=== PATIENT | female | born 1995 | race Caucasian/White ===

== ENCOUNTER 2017-01-29 11:21 | Emergency (ER) | payer OTHER ==
[2017-01-29 12:44] VITALS: BP 115/70
--- NOTE | 2017-01-29 13:40 | UC ---
Throat Pain/Nasal Blayne HPI - HPI Summary HPI Summary: c/o sore throat for 4 days hurts with swallowing took tylenol without relief. denies any ear pain, fever/chills at this time - History of Current Complaint Chief Complaint: UCRespiratory Stated Complaint: THROAT COMPLAINT Time Seen by Provider: 01/29/17 13:28 Hx Obtained From: Patient Hx Last Menstrual Period: 01/12/17 ?: No Onset/Duration: Gradual Onset, Lasting Days Severity: Severe Pain Scale Used: 0-10 Numeric - 4/10 Associated Signs & Symptoms: Positive: Dysphagia - Epiglottits Risk Factors Epiglottis Risk Factors: Negative - Allergies/Home Medications Allergies/Adverse Reactions: Allergies Allergy/AdvReac Type Severity Reaction Status Date / Time No Known Allergies Allergy Verified 01/29/17 12:44 PMH/Surg Hx/FS Hx/Imm Hx - Surgical History Surgical History: None - Social History Alcohol Use: Occasionally Substance Use Type: None Smoking Status (MU): Never Smoked Tobacco - Immunization History Most Recent Influenza Vaccination: 09-28-14 Review of Systems Skin: Negative Eyes: Negative ENT: Negative, Sore Throat Respiratory: Negative Cardiovascular: Negative Gastrointestinal: Negative Genitourinary: Negative Motor: Negative Neurovascular: Negative Musculoskeletal: Negative Neurological: Negative Psychological: Negative Is Patient Immunocompromised?: No All Other Systems Reviewed And Are Negative: Yes Physical Exam Triage Information Reviewed: Yes Appearance: Well-Appearing, No Pain Distress, Well-Nourished Vital Signs: Initial Vital Signs Temp 98 F 01/29/17 12:37 Pulse 68 01/29/17 12:37 Resp 14 01/29/17 12:37 BP 115/70 01/29/17 12:37 Pulse Ox 100 01/29/17 12:37 Vital Signs Reviewed: Yes Eyes: Positive: Conjunctiva Clear ENT: Positive: Pharyngeal erythema, TM bulging, Hoarse voice Neck: Positive: Supple Respiratory Exam: Normal Respiratory: Positive: Chest non-tender, Lungs clear, Normal breath sounds, No respiratory distress, No accessory muscle use Cardiovascular Exam: Normal Cardiovascular: Positive: RRR, No Murmur Abdominal Exam: Normal Musculoskeletal Exam: Normal Neurological Exam: Normal Neurological: Positive: Alert Psychological: Positive: Normal Response To Family, Age Appropriate Behavior Skin Exam: Normal Throat Pain/Nasal Course/Dx - Course Course Of Treatment: increase fluids daily while on antibiotic - to prevent dehydration. take antibiotic for full 10 days and take with food to prevent GI upset. strep test negative. f/u PCP in 1 week if symptoms not resolving. take ibuprofen or tylenol po every 4-6 hours for pain/fever - Differential Dx/Diagnosis Provider Diagnoses: pharyngitis Discharge - Discharge Plan Condition: Stable Disposition: HOME Prescriptions: Amoxicillin PO (*) [Amoxicillin 875 MG (*)] 875 mg PO BID 10 Days #20 tab Patient Education Materials: Pharyngitis (ED) Referrals: [facility] [Outside] - 1 Week
== END 2017-01-29 13:54 | disposition home or self-care (01) ==
LOC: UCCORT 11:21
DX: J02.9 Acute pharyngitis, unspecified (principal)
CPT/HCPCS: 87651; 99212; G0463

== ENCOUNTER 2017-02-02 16:04 | Emergency (ER) | payer OTHER ==
[2017-02-02 16:33] VITALS: BP 122/68
--- NOTE | 2017-02-02 16:57 | UC ---
Throat Pain/Nasal Blayne HPI - HPI Summary HPI Summary: Pt presents with college friend complaining of ST. She tells me that she was seen 5 days ago for a ST and fever, her POC strep was negative, and she was treated with amoxicillin. She is here today complaining of no relief despite antibiotic therapy. She says she still has a ST and fever, and has developed hoarseness and b/l ear pain. She denies cough, SOB, chest congestion, chest pain , abdominal pain, N/V/D/C - History of Current Complaint Chief Complaint: UCGeneralIllness Stated Complaint: SORE THROAT/FEVER/CONGESTION Time Seen by Provider: 02/02/17 16:48 Hx Obtained From: Patient Hx Last Menstrual Period: 01/12/17 Onset/Duration: Gradual Onset Severity: Moderate Pain Intensity: 7 Pain Scale Used: 0-10 Numeric - Allergies/Home Medications Allergies/Adverse Reactions: Allergies Allergy/AdvReac Type Severity Reaction Status Date / Time No Known Allergies Allergy Verified 02/02/17 16:27 PMH/Surg Hx/FS Hx/Imm Hx Previously Healthy: Yes - Surgical History Surgical History: None - Social History Occupation: Student Lives: Dormitory/Roommates Alcohol Use: Occasionally Substance Use Type: None Smoking Status (MU): Never Smoked Tobacco - Immunization History Most Recent Influenza Vaccination: no Review of Systems Constitutional: Fever Skin: Negative Eyes: Negative ENT: Sore Throat, Ear Ache Respiratory: Negative Cardiovascular: Negative Gastrointestinal: Negative Genitourinary: Negative Neurological: Negative Psychological: Negative All Other Systems Reviewed And Are Negative: Yes Physical Exam Triage Information Reviewed: Yes Appearance: Well-Appearing, Well-Nourished Vital Signs: Initial Vital Signs Temp 98.2 F 02/02/17 16:28 Pulse 93 02/02/17 16:28 Resp 16 02/02/17 16:28 BP 122/68 02/02/17 16:28 Pulse Ox 100 02/02/17 16:28 Vital Signs Reviewed: Yes Eyes: Positive: Conjunctiva Clear, Other: - PERRLA. Negative: Conjunctiva Inflamed, Discharge ENT: Positive: Hearing grossly normal, Pharyngeal erythema, TMs normal, Hoarse voice, Uvula midline. Negative: Nasal congestion, Nasal drainage, TM bulging, TM dull, TM red, Tonsillar swelling, Tonsillar exudate, Muffled voice, Sinus tenderness Neck: Positive: Supple, Nontender, No Lymphadenopathy Respiratory: Positive: Chest non-tender, Lungs clear, Normal breath sounds, No respiratory distress, No accessory muscle use Cardiovascular: Positive: RRR, No Murmur, Pulses Normal Abdomen Description: Positive: Nontender, No Organomegaly, Soft. Negative: CVA Tenderness (R), CVA Tenderness (L), Distended, Guarding Bowel Sounds: Positive: Present Neurological: Positive: Alert Psychological: Positive: Age Appropriate Behavior Skin: Negative: rashes Throat Pain/Nasal Course/Dx - Course Course Of Treatment: Discussed with patient that her symptoms are likely viral in nature - further supported by the fact she is not having relief from antibiotic therapy. Will try magic mouthwash for throat pain and continue rest, ibuprofen, and tylenol for fever and discomfort. - Differential Dx/Diagnosis Differential Diagnosis/HQI/PQRI: Influenza, Mononucleosis, Otitis Media, Peritonsillar Abscess, Pharyngitis, Tonsillitis, URI Provider Diagnoses: Viral Pharyngitis Discharge - Discharge Plan Condition: Stable Disposition: HOME Prescriptions: Magic M W2 Gino/Maal/Nyst/Lido* 5 ml SWISH SWAL QID PRN #100 ml PRN Reason: Sore Throat Patient Education Materials: Pharyngitis (ED) Forms: *School Release Referrals: Non Staff,Doctor [Primary Care Provider] - Additional Instructions: If you develop a fever, SOB, chest pain, new or worsening symptoms - please call your PCP or go to the ED.
== END 2017-02-02 17:10 | disposition home or self-care (01) ==
LOC: UCCORT 16:04
DX: J02.9 Acute pharyngitis, unspecified (principal); R50.9 Fever, unspecified; H92.09 Otalgia, unspecified ear
CPT/HCPCS: 99212; G0463

== ENCOUNTER 2017-02-05 15:01 | Emergency (ER) | payer OTHER ==
[2017-02-05 15:37] VITALS: BP 111/59
--- NOTE | 2017-02-05 16:00 | UC ---
Skin Complaint HPI - HPI Summary HPI Summary: Began treatment with amoxicillin 6 days ago for a sore throat, negative strep. Today developed raised erytehmatous rash from face to trunk, arms, upper thighs. Sore throat persists - History of Current Complaint Chief Complaint: UCRash Time Seen by Provider: 02/05/17 15:48 Stated Complaint: RASH Hx Obtained From: Patient, Family/Customer Care Agent - here with a friend Hx Last Menstrual Period: 01/12/17 ?: No Onset/Duration: Sudden Onset, Lasting Hours - onset over the past 8 hours. Timing: Constant Onset Severity: Moderate Current Severity: Moderate Location: Generalized Character: Pruritus, Raised Aggravating Factor(s): Touch Alleviating Factor(s): Nothing Related History: Recent change in medication - began amoxicillin 6 days ago. - Allergy/Home Medications Allergies/Adverse Reactions: Allergies Allergy/AdvReac Type Severity Reaction Status Date / Time No Known Allergies Allergy Verified 02/05/17 15:27 Home Medications: Home Medications Ibuprofen [Ibuprofen 200] 600 mg PO PRN 02/05/17 [History] Review of Systems Constitutional: Fatigue Skin: Negative Eyes: Negative ENT: Sore Throat - persisting despite amoxicillin Respiratory: Negative Cardiovascular: Negative Gastrointestinal: Negative Genitourinary: Negative Motor: Negative Neurovascular: Negative Musculoskeletal: Negative Neurological: Negative Psychological: Negative Is Patient Immunocompromised?: No All Other Systems Reviewed And Are Negative: Yes PMH/Surg Hx/FS Hx/Imm Hx Previously Healthy: Yes - Surgical History Surgical History: None - Family History Known Family History: Positive: Diabetes - grandfather, Other - mother has penicillin allergy - Social History Occupation: Student Alcohol Use: Occasionally Substance Use Type: None Smoking Status (MU): Never Smoked Tobacco - Immunization History Most Recent Influenza Vaccination: no Physical Exam Triage Information Reviewed: Yes Appearance: Ill-Appearing - looks mildly unwell. Vital Signs: Initial Vital Signs Temp 99 F 02/05/17 15:17 Pulse 95 02/05/17 15:17 Resp 16 02/05/17 15:17 BP 111/59 02/05/17 15:17 Pulse Ox 99 02/05/17 15:17 Eyes: Positive: Conjunctiva Clear ENT: Positive: Pharyngeal erythema, Tonsillar swelling Neck: Positive: Supple, Nontender, Enlarged Nodes @ - tonsillar nodes, has small mobile nodes posterior left cervical Respiratory: Positive: Lungs clear, Normal breath sounds Cardiovascular: Positive: RRR, No Murmur Abdomen Description: Positive: Nontender, No Organomegaly, Soft. Negative: CVA Tenderness (R), Splenomegaly Musculoskeletal Exam: Normal Neurological Exam: Normal Neurological: Positive: Alert Psychological Exam: Normal Skin: Positive: rashes - raised erythematous rash, confluent across face, neck, but spottier on the trunk, arms and upper thighs. Course/Dx - Course Course Of Treatment: prednisone for rash, possible allergic reaction. Discussed possibility of mono x amoxicillin rash v allergic reaction to amoxicillin. - Differential Diagnoses - Skin Complaint Differential Diagnoses: Allergic Reaction, Other - mono - Diagnoses Provider Diagnoses: allergic reaction to amoxicillin versus mono with reaction with amoxicillin. Labs pending. Discharge - Discharge Plan Condition: Stable Disposition: HOME Prescriptions: Prednisone 2 tab PO DAILY #10 tab Patient Education Materials: Acute Rash (ED), Adverse Drug Reaction (ED) Referrals: Non Staff,Doctor [Primary Care Provider] - Additional Instructions: Monospot is pending, and the rash is consistent with the reaction that can be seen when a person with mono takes amoxicillin. If that is negative, this is an allergic reaction to amoxicillin. The treatment approach initially is the same--steroids for comfort, benadryl as needed for itching, keep skin lubricated with either Aveeno or Sarna lotion. You have had an injection of solumedrol with a follow up prescription for oral steroids. This will help both the rash and the sore throat. Steroids could cause some irritability and insomnia, or could make you feel blue, or energetic. You can call for mono results late tomorrow morning.
[2017-02-05] MEDS ORDERED: methylPREDNISolone 125 MG* 2 ML VIAL IM ONE (16:21)
[2017-02-06 13:53] LABS: EBV Response YES
[2017-02-06 13:57] LABS: Hematocrit 42 % (35-47); Hemoglobin 14.3 g/dl (12.0-16.0); Mean Corpuscular HGB Conc 34 g/dl (31-36); Mean Corpuscular Hemoglobin 29 pg (27-31); Mean Corpuscular Volume 84 fL (80-97); Mean Platelet Volume 9 um3 (7.4-10.4); Red Blood Count 4.99 10^6/ul (4.0-5.4); Red Cell Distribution Width 13 % (10.5-15); White Blood Count 5.6 10^3/ul (3.5-10.8)
[2017-02-06 14:09] LABS: Manual Entry Verification CAS0014; Mono Internal Control QC Line Present
--- NOTE | 2017-02-06 18:24 | UC ---
Progress - Progress Note Progress Note: call patient, (-) mono/no acute changes on cbc
[2017-02-08 13:08] LABS: EBV Capsid Ag IgG Ab Positive (Negative); EBV Capsid Ag IgM Ab Negative (Negative)
== END 2017-02-05 16:53 | disposition home or self-care (01) ==
LOC: UCCORT 15:01
DX: R21 Rash and other nonspecific skin eruption (principal); J02.9 Acute pharyngitis, unspecified; R53.83 Other fatigue
CPT/HCPCS: 36415; 85025; 86308; 86664; 86665; 96372; 99212; G0463; J2930

== ENCOUNTER 2017-12-23 16:35 | Emergency (ER) | payer OTHER ==
[2017-12-23 17:07] VITALS: BP 120/66
--- NOTE | 2017-12-23 17:54 | UC ---
UC General HPI - HPI Summary HPI Summary: PT C/O 2 WEEK HX COUG. WORSE OVER PAST 2 DAYS WITH FEVER AND CHILLS. ADMITS TO SOB AND WHEEZING. NO CP. NO HX ASTHMA. - History of Current Complaint Chief Complaint: UCRespiratory Stated Complaint: COUGH,CONGESTION,FEVER Time Seen by Provider: 12/23/17 17:47 Hx Obtained From: Patient Hx Last Menstrual Period: 12/17/17 Onset/Duration: Gradual Onset Timing: Constant Pain Intensity: 0 Associated Signs & Symptoms: Positive: Cough, Fever, SOB, Wheezing. Negative: Chest Pain - Allergy/Home Medications Allergies/Adverse Reactions: Allergies Allergy/AdvReac Type Severity Reaction Status Date / Time amoxicillin Allergy Mild Rash Verified 12/23/17 17:07 PMH/Surg Hx/FS Hx/Imm Hx Previously Healthy: Yes - Surgical History Surgical History: None - Family History Known Family History: Positive: Diabetes - grandfather, Other - mother has penicillin allergy - Social History Occupation: Student Lives: Dormitory/Roommates Alcohol Use: Occasionally Substance Use Type: None Smoking Status (MU): Never Smoked Tobacco - Immunization History Most Recent Influenza Vaccination: no Vaccination Up to Date: Yes Review of Systems Constitutional: Fever, Chills Skin: Negative Eyes: Negative ENT: Negative Respiratory: Shortness Of Breath, Cough Cardiovascular: Negative Gastrointestinal: Negative Genitourinary: Negative Motor: Negative Neurovascular: Negative Musculoskeletal: Negative Neurological: Negative Psychological: Negative Is Patient Immunocompromised?: No All Other Systems Reviewed And Are Negative: Yes Physical Exam Triage Information Reviewed: Yes Appearance: Well-Appearing Vital Signs: Initial Vital Signs Temp 98.8 F 12/23/17 17:02 Pulse 86 12/23/17 17:02 Resp 19 12/23/17 17:02 BP 120/66 12/23/17 17:02 Pulse Ox 98 12/23/17 17:02 Vital Signs Reviewed: Yes Eyes: Positive: Conjunctiva Clear ENT: Positive: Pharynx normal, TMs normal. Negative: Nasal congestion, Nasal drainage Neck: Positive: Supple, Nontender, No Lymphadenopathy Respiratory: Positive: No respiratory distress, Decreased breath sounds, Other: - FOCAL FAINT INSP CRACKLES WITH OCCASIONAL WHEEZES RLL. Cardiovascular: Positive: RRR, No Murmur Abdomen Description: Positive: Nontender, No Organomegaly, Soft Bowel Sounds: Positive: Present Musculoskeletal: Positive: ROM Intact Neurological: Positive: Alert Psychological: Positive: Age Appropriate Behavior Skin Exam: Normal Course/Dx - Course Course Of Treatment: GIVEN HX AND PE, WILL TX FOR BRONCHOSPASM AND POSSIBLE RLL PNEUMONIA. NEED FOR CLOSE F/U ADVISED. - Differential Dx - Multi-Symptom Provider Diagnoses: ACUTE COUG. BRONCHOSPASM. POSSIBLE PNEUMONIA Discharge - Sign-Out/Discharge Documenting (check all that apply): Patient Departure All imaging exams completed and their final reports reviewed: No Studies - Discharge Plan Condition: Stable Disposition: HOME Prescriptions: Albuterol HFA INHALER* [Ventolin HFA Inhaler*] 2 puff INH Q6H #1 mdi DOXYcycline CAP(*) [DOXYcycline 100MG CAP(*)] 100 mg PO BID 10 Days #20 cap Patient Education Materials: Bronchospasm (ED), Acute Cough (ED) Referrals: [facility] [Outside] - 5 Days - Billing Disposition and Condition Condition: STABLE Disposition: Home
== END 2017-12-23 18:02 | disposition home or self-care (01) ==
LOC: UCCORT 16:35
DX: J98.01 Acute bronchospasm (principal); Z88.1 Allergy status to other antibiotic agents
CPT/HCPCS: 99212; G0463